=== PATIENT | male | born 1955 | race Caucasian/White ===

== ENCOUNTER → 2017-10-17 | Day surgery (SDC) | payer OTHER ==
[2017-10-16 17:21] LABS: BASOPHILS # (AUTO) 0.1 (0.0-0.1); BASOPHILS % 0.7 % (0.0-1.0); EOSINOPHILS # (AUTO) 0.1 (0.0-0.4); EOSINOPHILS % 1.4 % (0.0-6.0); HEMATOCRIT 42.5 % (38.2-49.6); HEMOGLOBIN 14.1 g/dL (14.0-18.0); LYMPHOCYTES # (AUTO) 2.2 (1.0-3.2); LYMPHOCYTES % 24.9 % (18.0-39.1); MEAN CORPUSCULAR HEMOGLOBIN 30.7 pg (28-32); MEAN CORPUSCULAR HGB CONC 33.2 g/dL (31-35); MEAN CORPUSCULAR VOLUME 92.4 fL (81-99); MONOCYTES # (AUTO) 0.9 (0.2-0.8); NEUTROPHILS # (AUTO) 5.6 (2.1-6.9); NEUTROPHILS % 62.8 % (38.7-80.0); PLATELET COUNT 210 x10e3/uL (140-360); RED CELL DISTRIBUTION WIDTH 13.2 % (11.7-14.4)
[2017-10-16 17:31] LABS: CREATININE, SERUM 0.87 mg/dL (0.72-1.25)
--- NOTE | 2017-10-16 18:20 | Diagnostic Imaging Report ---
PROCEDURE: Frontal and lateral views of the chest. COMPARISON: None. INDICATIONS: PRE-OP. Left heart catheterization. FINDINGS: Lines/tubes: None. Lungs: The lungs are well inflated and clear. There is no evidence of pneumonia or pulmonary edema. Pleura: There is no pleural effusion or pneumothorax. Heart and mediastinum: The heart and the mediastinum are normal. Bones: No acute bony abnormality. IMPRESSION: No acute cardiopulmonary disease. Dictated by: Camilo Olivares M.D. on 10/16/2017 at 18:30 Electronically approved by: Camilo Olivares M.D. on 10/16/2017 at 18:30
[~2017-10-17] VITALS: Ht 185.4 cm; Wt 94.3 kg
[~2017-10-17] MED LIST: ALPRAZOLAM 0.5 MG TAB ONE; ASPIRIN81 MG PO; CRESTOR10 MG PO; DIPHENHYDRAMINE HCL 25 MG CAP ONE; FENTANYL CITRATE/PF 100MCG/2 ML INJ ONE; HEPARIN SOD/SOD CHLORIDE 2,000 ML ONE; IOPAMIDOL 300MG/ML 50ML INFUS..BTL IV ONE; IOPAMIDOL 370 MG/ML 200 ML INFUS..BTL INJ ONE; LIDOCAINE HCL 2% LOCAL 20 ML VIAL ONE; METOPROLOL SUCC25 MG PO; MIDAZOLAM HCL 2 MG/2 ML VIAL ONE; PLAVIX75 MG PO; SODIUM CHLORIDE 0.9% 1000ML 1,000 ML ONE
[2017-10-17 14:44] VITALS: BP 116/75
--- NOTE | 2017-10-17 20:12 | Pre Op History & Physical ---
CHIEF COMPLAINT AND HISTORY OF PRESENT ILLNESS: The patient comes here for evaluation of coronary arteries. The patient complains of weakness and tiredness, vague symptoms. However, nuclear test is positive for ischemia of the anterior wall. The patient has history of coronary artery disease and stent placement done about a few years ago of circumflex artery. The patient has history of portal hypertension, hyperlipidemia. No history of stroke. No history of nausea, vomiting or abdominal pain. ALLERGIES: NO KNOWN DRUG ALLERGIES. PAST SURGICAL HISTORY: No major surgeries recently. SOCIAL HISTORY: The patient is with grown children. PHYSICAL EXAMINATION GENERAL: The patient is conscious, alert, well oriented. HEART: Normal. LUNGS: Normal. ABDOMEN: Normal. NEUROLOGY: Normal. SKIN: Normal. Nuclear stress test shows abnormal anterior wall ischemia with a scar and nuclear scan EF is about 50%. IMPRESSION: 1. Angina pectoris, recurrent. 2. Coronary artery disease, stent placed in the past. 3. Hypertension. PLAN: The patient is brought in for heart catheterization and if necessary coronary stent placement. Job#: [id number]
--- NOTE | 2017-10-17 20:19 | Operative Report ---
DATE OF PROCEDURE: October 17, 2017 DIAGNOSES 1. Angina pectoris, recurrent. 2. Abnormal nuclear stress test. 3. History of coronary artery stent placement in the past. This procedure was done at [facility] heart catheterization lab after informed consent with conscious sedation. RESULTS OF TESTS: Right coronary arteriogram was normal; however, right coronary artery is a small artery. Left coronary arteriogram was normal. In the left coronary system, left main normal. LAD proximally got 80% to 90% lesion and the 2 diagonal arteries involved in this lesion and distal LAD has got 80% to 90% lesion noted at the tip of the distal LAD. Circumflex artery old stent placed in the past is patent. artery has got 70% to 80% lesion proximally. Left ventricular angiogram showed ejection fraction of 45%. Right femoral artery is closed with Perclose closure device. The plan at this time to discuss this coronary artery anatomy surgery. I have discussed with the family and thus will choose either bypass surgery or coronary artery stent placement. This was done after discussing with surgery and also with the patient's family and the patient. The patient will be discharged tonight about 8 p.m. The patient is in stable condition. Job#: [id number]
--- NOTE | 2017-10-18 00:38 | Discharge Summary ---
PARUL TRACY, LENGTH 0:03 Sanford BURTON MD Job#: [id number] CF
--- NOTE | 2017-10-18 00:54 | Discharge Summary ---
DISCHARGE DIAGNOSES 1. Coronary artery disease, severe left anterior descending and obtuse marginal lesion. 2. Hypertension. 3. Hyperlipidemia. PROCEDURE DONE: Nuclear stress test in different hospital done in [facility]. DISCHARGE SUMMARY: Patient underwent a coronary angiogram, found to have ostia small, but normal. artery has got 80% lesion noted. LAD has got a proximal lesion about 80% lesion noted. At this time, patient's LVEF is about 45%. Plan at this time, we discussed the coronary anatomy, the surgery, and possibly patient will undergo stent placement or bypass surgery depending upon the wishes of the patient. At the mean time, patient will continue aspirin, anticholesterol medication, and blood pressure medications, which are already the patient is taking at home, advised to go home and take rest. Advised low-fat diet, low-salt diet, and follow at my office. If any chest pain, call my office. Sanford BURTON MD Job#: [id number] CQ
== END | disposition home or self-care (01) ==
LOC: CATH LAB 12:19
PROVIDERS: ATTEND Internal Medicine Cardiovascular Disease
DX: I25.118 Atherosclerotic heart disease of native coronary artery with other forms of angina pectoris (principal); R94.39 Abnormal result of other cardiovascular function study; I10 Essential (primary) hypertension; E78.5 Hyperlipidemia, unspecified; Z95.5 Presence of coronary angioplasty implant and graft; Z01.810 Encounter for preprocedural cardiovascular examination; Z01.812 Encounter for preprocedural laboratory examination; Z01.818 Encounter for other preprocedural examination; Z79.82 Long term (current) use of aspirin; Z79.02 Long term (current) use of antithrombotics/antiplatelets
CPT/HCPCS: 36415; 71020; 77002; 82565; 84520; 85025; 93005; 93458; C1725; J2001; J2250; J7030; Q9967 ×2; 36140; 93452